=== PATIENT | male | born 1995 | race Caucasian/White ===

== ENCOUNTER 2018-02-15 17:08 | Emergency (ER) | payer OTHER ==
[~2018-02-15] VITALS: Ht 172.7 cm; Wt 68.0 kg
[2018-02-15 17:21] VITALS: BP 134/77
--- NOTE | 2018-02-15 18:22 | Emergency Room Report ---
History of Present Illness General Chief Complaint: Skin Rash/Abscess Source: Patient Present Illness HPI This patient c/o spider bite right ant thigh yesterday. Pain at site, there are spiders in the house. No other complaint. Allergies: Coded Allergies: SULFA (SULFONAMIDE ANTIBIOTICS) (Verified Allergy, Unknown, 02/15/18) Nursing Documentation-[facility] Past Medical History: No History, Except For Hx Hypertension: Yes Review of Systems Constitutional: Reports: no symptoms Eye: Reports: no symptoms ENT: Reports: no symptoms Respiratory: Reports: no symptoms Cardiovascular: Reports: no symptoms Gastrointestinal: Reports: no symptoms Genitourinary: Reports: no symptoms Musculoskeletal: Reports: see HPI Skin: Reports: no symptoms Psychiatric: Reports: no symptoms Neurological: Reports: no symptoms Endocrine: Reports: no symptoms Hematologic/Lymphatic: Reports: no symptoms Allergic: Reports: no symptoms All Other Systems: negative except mentioned in HPI Physical Exam Vital Signs Date Time Temp Pulse Resp B/P (MAP) Pulse Ox O2 Delivery O2 Flow Rate FiO2 02/15/18 17:15 98.2 82 18 134/77 95 Room Air Sp02 EP Interpretation: reviewed, normal General Appearance: normal inspection, well appearing, no apparent distress, alert, GCS 15, non-toxic Head: normocephalic, atraumatic Eyes: bilateral eye normal inspection, bilateral eye PERRL, bilateral eye EOMI ENT: normal ENT inspection, hearing grossly normal, normal pharynx, no angioedema, normal voice, moist mucus membranes Neck: normal inspection, full range of motion, supple, no meningismus, no bony tend Respiratory: normal inspection, lungs clear, normal breath sounds, no rhonchi, no respiratory distress, no retraction, no accessory muscle use, no wheezing Cardiovascular #1: normal inspection, regular rate, rhythm, no edema Gastrointestinal: normal inspection, normal bowel sounds, non tender, soft, no mass, non-distended Musculoskeletal: gait/station normal, normal range of motion, other - there is small area of ecchymosis ~one inch x half inch and two tiny punctures c/w spider fang Neurologic: normal inspection, alert, oriented x3, responsive, motor strength/ tone normal Psychiatric: normal inspection, judgement/insight normal, memory normal Suicide Risk Assessment: Suicidal Ideation: No Had intent to initiate attempt: No Pt's plan for suicide attempt: No Has means to complete attempt: No Skin: normal inspection, normal color, no rash, warm/dry Medical Decision Making Diagnostic Impression: Primary Impression: Spider bite ER Course No specific treatment indicated. Last Vital Signs Date Time Temp Pulse Resp B/P (MAP) Pulse Ox O2 Delivery O2 Flow Rate FiO2 02/15/18 17:21 98.2 82 18 134/77 95 Room Air Disposition: HOME, SELF-CARE Referrals: NOT CHOSEN IPA/MD,REFERRING (PCP) Patient Instructions: Spider Bite, [id number] Joe Jade M.D. Feb 15, 2018 18:22
[2018-02-15 19:34] VITALS: BP 147/88
[2018-02-15 19:35] VITALS: BP 147/88
== END 2018-02-15 19:35 | disposition home or self-care (01) ==
LOC: EMR 17:52
DX: S70.361A Insect bite (nonvenomous), right thigh, initial encounter (principal); W57.XXXA Bitten or stung by nonvenomous insect and other nonvenomous arthropods, initial encounter; Y92.9 Unspecified place or not applicable; I10 Essential (primary) hypertension; Z88.2 Allergy status to sulfonamides
CPT/HCPCS: 99282

== ENCOUNTER 2018-05-17 17:30 | Emergency (ER) | payer OTHER ==
[~2018-05-17] VITALS: Ht 172.7 cm; Wt 74.8 kg
[2018-05-17 17:30] VITALS: BP 124/74
--- NOTE | 2018-05-17 17:30 | NUR ---
ED Nurse Note: Pt walked in to ER as c/o N/V/D since this morning. Per pt, he vomited x3 and had diarrhea x2 since this morning. Verbalized abdominal discomfort 3. Pt AAO x4, skin intact, no vomitting or diarrhea at this moment since arrived at ER. Calm and cooperative.
[2018-05-17 18:41] LABS: ANION GAP 7 mmol/L (5-15); BLOOD UREA NITROGEN 15 mg/dL (7-18); CALCIUM 9.3 MG/DL (8.5-10.1); CARBON DIOXIDE 30 MMOL/L (21-32); CHLORIDE 103 MMOL/L (98-107); CREATININE 1.1 MG/DL (0.55-1.30); POTASSIUM 4.1 MMOL/L (3.5-5.1); SODIUM 140 MMOL/L (136-145)
[2018-05-17 18:43] LABS: BASOPHILS % (AUTO) 1.8 % (0.0-2.0); EOSINOPHILS % (AUTO) 2.3 % (0.0-3.0); HEMATOCRIT 44.8 % (42.0-52.0); HEMOGLOBIN 15.1 G/DL (14.2-18.0); LYMPHOCYTES % (AUTO) 31.5 % (20.0-45.0); MEAN CORPUSCULAR VOLUME 89 FL (80-99); MONOCYTES % (AUTO) 6.4 % (1.0-10.0); NEUTROPHILS % (AUTO) 58.1 % (45.0-75.0); PLATELET COUNT 270 K/UL (150-450); RED BLOOD COUNT 5.06 M/UL (4.70-6.10); RED CELL DISTRIBUTION WIDTH 11.5 % (11.6-14.8); WHITE BLOOD COUNT 6.7 K/UL (4.8-10.8)
[2018-05-17 18:46] LABS: ALANINE AMINOTRANSFERASE 37 U/L (12-78); ALBUMIN 4.6 G/DL (3.4-5.0); ALBUMIN/GLOBULIN RATIO 1.3 (1.0-2.7); ALKALINE PHOSPHATASE 82 U/L (46-116); ASPARTATE AMINO TRANSFERASE 28 U/L (15-37); BILIRUBIN,TOTAL 0.3 MG/DL (0.2-1.0)
--- NOTE | 2018-05-17 19:08 | NUR ---
HAND-OFF: Report given to Rachele. pt stable in bed. all meds given.
[2018-05-17 19:20] VITALS: BP 141/78
--- NOTE | 2018-05-17 19:20 | NUR ---
ED Nurse Note: RECIEVED REPORT TO RESUME CARE, PT IN BED AWAKE, ALERT AND ORIENTED X 4, IV SITE PATENT WITH FLUIDS INFUSING, SITE ITNACT, PT DENIES PAIN, NO CP, NO SOB OR LABORED BREATHING, SPOUSE PRESENT AT BEDSIDE, WILL RESUME CARE ORDERED, CONTINUE TO MONITOR FOR MED EFFECTIVENESS AND ANY ACUTE CHANGES, NAD NOTED AT THIS TIME.
[2018-05-17] MEDS ORDERED: PRILOSEC OTC20 MG ORAL (19:33)
--- NOTE | 2018-05-17 19:45 | NUR ---
ED Nurse Note: PT BEING D/C TO HOME AWAKE AND ALERT, AMBULATORY, NO CP OR ANY PAIN, NO NAUSEA OR VOMITING, PT WITH SPOUSE, GIVEN F/U INFO, AFTER CARE INSTRUCTIONS AND RE-VERBALIZES PROPER MEDICATION ADMINISTRATION, PT ARMBAND AND IV LINE REMOVED WITHOUT COMPLICATIONS, NAD NOTED DURING D/C TO HOME.
[2018-05-17 19:48] VITALS: BP 141/78
--- NOTE | 2018-05-18 14:11 | Emergency Room Report ---
History of Present Illness General Chief Complaint: Nausea, Vomiting, and Diarrhea Source: Patient Present Illness HPI Patient is a 22-year-old male who presented after increased vomiting. Patient reports having one episode of hematemesis. He reports taking multiple medications for psychiatric disease as well as antihypertensive. Patient states that he had not been drinking alcohol recently. He had been taking some nonsteroidal anti-inflammatory medications for low back pain which is chronic. He denies any fever. He denies any black or bloody stools. He reports having some generalized abdominal cramping. He denies any prior history of colitis. Patient reports currently being in a recovery program. Allergies: Coded Allergies: SULFA (SULFONAMIDE ANTIBIOTICS) (Verified Allergy, Unknown, 02/15/18) Patient History Past Medical History: see triage record Reviewed Nursing Documentation: PMH: Agreed; PSxH: Agreed Nursing Documentation-PMH Past Medical History: No History, Except For Hx Hypertension: Yes Review of Systems All Other Systems: negative except mentioned in HPI Physical Exam Vital Signs Date Time Temp Pulse Resp B/P (MAP) Pulse Ox O2 Delivery O2 Flow Rate FiO2 05/17/18 17:30 97.7 78 18 124/74 98 Room Air Sp02 EP Interpretation: reviewed, normal General Appearance: normal inspection, well appearing, no apparent distress, alert, GCS 15, non-toxic Head: atraumatic ENT: normal ENT inspection, hearing grossly normal, normal voice Neck: normal inspection, full range of motion, supple, no bony tend Respiratory: normal inspection, lungs clear, normal breath sounds, no respiratory distress, no retraction, no wheezing Cardiovascular #1: regular rate, rhythm, no edema Gastrointestinal: normal inspection, normal bowel sounds, non tender, soft, no guarding, no hernia Genitourinary: no CVA tenderness Musculoskeletal: normal inspection, back normal, normal range of motion Neurologic: normal inspection, alert, oriented x3, responsive, health educator III-XII nml as tested, speech normal Psychiatric: normal inspection, judgement/insight normal, mood/affect normal Skin: normal inspection, normal color, no rash Medical Decision Making Diagnostic Impression: Primary Impression: Gastritis ER Course Patient presented for abdominal pain. Differential diagnoses included ischemic bowel, appendicitis, perforated viscus, abdominal aortic aneurysm, inferior myocardial infarction, viral gastroenteritis. Because of complexity of patient' s case laboratory testing and imaging studies were ordered. Laboratory testing was notable for unremarkable blood counts. Patient given IV fluids as well as IV acid blockers. Patient said he felt better. Patient was offered admission for further evaluation monitoring of his blood counts. Shared decision making patient declined admission and stated he would seek outpatient evaluation. Patient appears to be stable for discharge at this time. Patient was advised to return if he began having any recurrence of bleeding bloody stools or other concerns Labs Test 05/17/18 18:14 05/17/18 18:30 White Blood Count 6.7 K/UL (4.8-10.8) Red Blood Count 5.06 M/UL (4.70-6.10) Hemoglobin 15.1 G/DL (14.2-18.0) Hematocrit 44.8 % (42.0-52.0) Mean Corpuscular Volume 89 FL (80-99) Mean Corpuscular Hemoglobin 29.8 PG (27.0-31.0) Mean Corpuscular Hemoglobin Concent 33.6 G/DL (32.0-36.0) Red Cell Distribution Width 11.5 % (11.6-14.8) Platelet Count 270 K/UL (150-450) Mean Platelet Volume 6.5 FL (6.5-10.1) Neutrophils (%) (Auto) 58.1 % (45.0-75.0) Lymphocytes (%) (Auto) 31.5 % (20.0-45.0) Monocytes (%) (Auto) 6.4 % (1.0-10.0) Eosinophils (%) (Auto) 2.3 % (0.0-3.0) Basophils (%) (Auto) 1.8 % (0.0-2.0) Sodium Level 140 MMOL/L (136-145) Potassium Level 4.1 MMOL/L (3.5-5.1) Chloride Level 103 MMOL/L (98-107) Carbon Dioxide Level 30 MMOL/L (21-32) Anion Gap 7 mmol/L (5-15) Blood Urea Nitrogen 15 mg/dL (7-18) Creatinine 1.1 MG/DL (0.55-1.30) Estimat Glomerular Filtration Rate > 60 mL/min (>60) Glucose Level 99 MG/DL (74-106) Calcium Level 9.3 MG/DL (8.5-10.1) Total Bilirubin 0.3 MG/DL (0.2-1.0) Aspartate Amino Transf (AST/SGOT) 28 U/L (15-37) Alanine Aminotransferase (ALT/SGPT) 37 U/L (12-78) Alkaline Phosphatase 82 U/L (46-116) Total Protein 8.1 G/DL (6.4-8.2) Albumin 4.6 G/DL (3.4-5.0) Globulin 3.5 g/dL Albumin/Globulin Ratio 1.3 (1.0-2.7) Prothrombin Time 10.5 SEC (9.30-11.50) Prothromb Time International Ratio 1.0 (0.9-1.1) Activated Partial Thromboplast Time 28 SEC (23-33) Last Vital Signs Date Time Temp Pulse Resp B/P (MAP) Pulse Ox O2 Delivery O2 Flow Rate FiO2 05/17/18 19:48 98.4 63 14 141/78 100 Room Air Status: improved Disposition: HOME, SELF-CARE Condition: Stable Scripts Omeprazole Magnesium (PRILOSEC OTC) 20 Mg Tablet. 20 MG ORAL DAILY, #30 TAB Prov: Ted Guardado MD 05/17/18 Patient Instructions: Gastritis, Adult Ted Guardado MD May 18, 2018 14:11
[2018-05-18] MEDS ORDERED: PROPRANOLO20 MG/5 M1 PO (14:50)
[2018-05-18] MEDS ORDERED: TYLENOL EXTRA500 MG ORAL (16:18)
== END 2018-05-17 19:45 | disposition home or self-care (01) ==
LOC: EMR 18:38
DX: K29.70 Gastritis, unspecified, without bleeding (principal); I10 Essential (primary) hypertension; Z88.2 Allergy status to sulfonamides
CPT/HCPCS: 36415; 80053; 85025; 85610; 85730; 86850; 86900; 86901; 96361; 96374; 99284; S0028

== ENCOUNTER 2018-05-18 14:44 | Emergency (ER) | payer OTHER ==
[~2018-05-18] VITALS: Ht 172.7 cm; Wt 74.8 kg
[~2018-05-18 14:44] MED LIST: PRILOSEC OTC20 MG ORAL
[2018-05-18] MEDS ORDERED: PROPRANOLO20 MG/5 M1 PO (14:50)
--- NOTE | 2018-05-18 14:54 | NUR ---
ED Nurse Note: Patient walked into ED c/o of left ankle pain, patient states that he "broke up a dog fight, fell and heard a pop on his left ankle". patient rates his pain a 8/10 pain. patient is alert and oriented x4, ambulatory with a limp.
--- NOTE | 2018-05-18 15:06 | Emergency Room Report ---
History of Present Illness General Chief Complaint: Lower Extremity Injury Present Illness HPI 22-year-old male patient presents the ER complaining of left ankle pain times 1 day. Reports that he was running to break up a dog fight at his house when he had an ankle inversion injury. Reports pain with walking. States not take any medication for relief of symptoms. Denies calf pain. Reports applied Vivek wrap to ankle. Denies other aggravating or relieving symptoms. Denies hitting her head or loss of consciousness. Patient reports was seen in the ER yesterday for gastritis, reports symptoms improved, denies hematemesis since that time. Allergies: Coded Allergies: SULFA (SULFONAMIDE ANTIBIOTICS) (Verified Allergy, Unknown, 02/15/18) Patient History Past Medical History: see triage record Reviewed Nursing Documentation: PMH: Agreed; PSxH: Agreed Nursing Documentation-PMH Hx Hypertension: Yes Review of Systems All Other Systems: negative except mentioned in HPI Physical Exam Vital Signs Date Time Temp Pulse Resp B/P (MAP) Pulse Ox O2 Delivery O2 Flow Rate FiO2 05/18/18 14:48 98.4 63 19 122/74 97 Room Air Sp02 EP Interpretation: reviewed, normal General Appearance: well appearing, no apparent distress, alert, GCS 15, non- toxic Head: normocephalic, atraumatic Eyes: bilateral eye normal inspection, bilateral eye PERRL ENT: hearing grossly normal, normal pharynx, no angioedema, normal voice, uvula midline, moist mucus membranes Neck: full range of motion Respiratory: lungs clear, normal breath sounds, no rhonchi, no respiratory distress, no accessory muscle use, no wheezing, speaking full sentences Cardiovascular #1: regular rate, rhythm, no edema Cardiovascular #2: 2+ dorsalis pedis (R), 2+ dorsalis pedis (L) Musculoskeletal: back normal, digits/nails normal, gait/station normal, normal range of motion, no calf tenderness, Jax's Sign negative, other - Negative ankle drawer, cap refill less than 2 seconds, sensation intact light touch, negative syndesmotic squeeze test, no tenderness to palpation at the base of the left fifth metatarsal, tender - Anterior dorsum of left ankle, left lateral malleoli Skin: no rash Medical Decision Making PA Attestation Dr. Guardado is my supervising Physician whom patient management has been discussed with. Diagnostic Impression: Primary Impression: Ankle sprain ER Course Pt. presents to the ED c/o left ankle pain. Ddx considered but are not limited to fracture, sprain, strain, contusion, dislocation. No erythema, no warmth to touch, no fever, nontoxic appearing, low suspicion for septic joint. Soft compartments, no pulselessness, no pallor, no paresthesias, low suspicion for compartment syndrome at this time. Vital signs: are WNL, pt. is afebrile Ordered X-ray and pain medication. ER COURSE Provided with pain medication. An X-ray of the left ankle shows no acute fracture per the preliminary reading Splint was applied to the left ankle and was checked afterwards by me showing good alignment and support with distal neurovascular functioning intact. Crutches provided. Patient instructed on RICE method: rest, ice, compression, elevation. Patient instructed on rest, ice and heat. Patient instructed to be WBAT Contact information for orthopedic urgent care provided, follow-up with urgent care if unable to followup with primary care provider and get referral to language specialist. Followup with primary care provider. Discuss referral to ortho/pain management/ PT as needed. Discuss further imaging with MRI/CT as needed. DISCHARGE: -Rx provided for Tylenol for pain symptoms. At this time pt. is stable for d/c to home. Patient is resting comfortably, in no acute distress, nontoxic appearing, talking without difficulty. Will provide printed patient care instructions, and any necessary prescriptions. Patient instructed to follow with primary care provider in 3 - 5 days and to request further follow-up as needed. Care plan and follow up instructions have been discussed with the patient prior to discharge. Take medications as directed. Patient questions asked and answered. Patient reports understanding and agreement to treatment plan. ER precautions given, patient instructed to return to ER immediately for any new or worsening of symptoms. - Please note that this Emergency Department Report was dictated using [employer] photography and prints technology software, occasionally this can lead to erroneous entry secondary to interpretation by the dictation equipment. Other X-Ray Diagnostic Results Other X-Ray Diagnostic Results : X-Ray ordered: Left ankle # of Views/Limited Vs Complete: 3 View Indication: Pain EP Interpretation: Yes PA Xray: Interpretation reviewed, by supervising MD, and agrees with findings. Interpretation: no dislocation, no soft tissue swelling, no fractures Impression: No acute disease CARTER Scribe Text Trent Morgan PA-C Last Vital Signs Date Time Temp Pulse Resp B/P (MAP) Pulse Ox O2 Delivery O2 Flow Rate FiO2 05/18/18 14:48 98.4 63 19 122/74 97 Room Air Status: improved Disposition: HOME, SELF-CARE Condition: Stable Scripts Acetaminophen* (TYLENOL EXTRA STRENGTH*) 500 Mg Tablet 500 MG ORAL Q8H PRN for Prn Headache/Temp > 101, #30 TAB 0 Refills Prov: Osmar Morgan 05/18/18 Patient Instructions: Ankle Sprain Additional Instructions: Patient instructed to follow up with primary care provider and discuss further referral to orthopedics/physical therapy/pain management as needed. If unable to followup with PCP, followup with orthopedic urgent care in 5-7 days , call to schedule appointment. Patient instructed on RICE method: rest, ice, compression, elevation. Patient instructed to WBAT. Take medications as directed. Take medication with food. Patient questions asked and answered. ER precautions given, patient instructed to return to ER immediately for any new or worsening of symptoms. [facility] [address] [facility], [id number] [email or web address] Osmar Morgan May 18, 2018 15:06
[2018-05-18] MEDS ORDERED: TYLENOL EXTRA500 MG ORAL (16:18)
[2018-05-18 16:20] VITALS: BP 125/79
--- NOTE | 2018-05-18 16:21 | NUR ---
ED Nurse Note: Patient is being discharged from ED after being medically cleared by ERMD, patient acknowledged the need to follow up with PMD within a week if symptoms dont improve, patient's prescriptions in hand and is leaving ambulatory with a steady gait, VSS, no distress noted, Id band removed
--- NOTE | 2018-05-18 17:02 | Diagnostic Imaging Report ---
Indication: Left ankle pain Technique: 3 views of the left ankle Comparison: none Findings: The calcaneal tuberosity is cut off of the exam. Patient had left the ED before the exam could be repeated. No acute fractures. No dislocations. The joint spaces are preserved Impression: Somewhat limited exam; negative
== END 2018-05-18 16:21 | disposition home or self-care (01) ==
LOC: EMR 15:20
DX: S93.402A Sprain of unspecified ligament of left ankle, initial encounter (principal); W19.XXXA Unspecified fall, initial encounter; Y93.02 Activity, running; Y92.009 Unspecified place in unspecified non-institutional (private) residence as the place of occurrence of the external cause; I10 Essential (primary) hypertension; Z88.2 Allergy status to sulfonamides
CPT/HCPCS: 29515; 99283

== ENCOUNTER 2018-05-31 02:33 | Emergency (ER) | payer OTHER ==
[~2018-05-31] VITALS: Ht 170.2 cm; Wt 74.8 kg
[~2018-05-31 02:33] MED LIST changes: +PROPRANOLO20 MG/5 M1 PO; +TYLENOL EXTRA500 MG ORAL
[2018-05-31 02:37] VITALS: BP 128/66
[2018-05-31] MEDS ORDERED: LAMOTRIGINE25 M1 PO (02:37)
[2018-05-31] MEDS ORDERED: PAXIL30 MG ORAL (02:37)
[2018-05-31] MEDS ORDERED: NEURONTIN300 MG ORAL (02:37)
--- NOTE | 2018-05-31 02:40 | NUR ---
ED Nurse Note: Patient RADHA RA 60 from home c/o heroin OD. Patient's friends gave him narcan nasal spray prior to EMS arrival. pt stated he wanted to use heroin for recreational use. when asked if pt wanted to harm himself, pt denied harm to self, harm to others. pt vital signs, condition, and status are within normal limits in tri. pt is able to determin when he is at the moment, why he is here, and recall memeries like time and date. pt pupils are round and reactive to light.
--- NOTE | 2018-05-31 02:58 | Emergency Room Report ---
History of Present Illness General Chief Complaint: Substance Abuse Source: Patient Present Illness HPI Is a 22-year-old male with a history of IV heroin abuse. He has been 9 months clean. He is currently living in a sober living. He injected himself with heroin tonight. He was found unresponsive and was given intranasal Narcan 2 mg. This woke him up. He did not know what happened. He denies any suicidal thoughts or homicidal thought. Denies any other complaint. Allergies: Coded Allergies: SULFA (SULFONAMIDE ANTIBIOTICS) (Verified Allergy, Unknown, 02/15/18) Patient History Past Medical History: see triage record, old chart reviewed Past Surgical History: none Pertinent Family History: none Social History: Reports: drug use Immunizations: other Reviewed Nursing Documentation: PMH: Agreed; PSxH: Agreed Nursing Documentation-PMH Past Medical History: No History, Except For Hx Hypertension: Yes Review of Systems Eye: Denies: eye pain, blurred vision ENT: Denies: ear pain, nose congestion, throat swelling Respiratory: Denies: cough, shortness of breath Cardiovascular: Denies: chest pain, palpitations Gastrointestinal: Denies: abdominal pain, diarrhea, nausea, vomiting Musculoskeletal: Denies: back pain, joint pain Skin: Denies: rash Neurological: Denies: headache, numbness Endocrine: Denies: increased thirst, increased urine Hematologic/Lymphatic: Denies: easy bruising All Other Systems: negative except mentioned in HPI Physical Exam Vital Signs Date Time Temp Pulse Resp B/P (MAP) Pulse Ox O2 Delivery O2 Flow Rate FiO2 05/31/18 02:34 98.4 96 16 128/66 97 05/31/18 02:37 Room Air 99 vitals normal Sp02 EP Interpretation: reviewed, normal General Appearance: well appearing, no apparent distress, other - Sleepy Head: normocephalic, atraumatic Eyes: bilateral eye PERRL, bilateral eye EOMI ENT: hearing grossly normal, normal pharynx Neck: full range of motion, supple, no meningismus Respiratory: chest non-tender, lungs clear, normal breath sounds Cardiovascular #1: regular rate, rhythm, no murmur Gastrointestinal: normal bowel sounds, non tender, no mass, no organomegaly, no bruit, non-distended Musculoskeletal: back normal, gait/station normal, normal range of motion Psychiatric: mood/affect normal Skin: warm/dry Medical Decision Making Diagnostic Impression: Primary Impression: Accidental heroin overdose Qualified Codes: T40.1X1A - Poisoning by heroin, accidental (unintentional), initial encounter ER Course Patient presents with heroin overdose. He slept for a few hours and is awake now. No suicidal attempt. No criteria for 5150. Last Vital Signs Date Time Temp Pulse Resp B/P (MAP) Pulse Ox O2 Delivery O2 Flow Rate FiO2 05/31/18 02:37 98.4 82 16 128/66 97 Room Air 05/31/18 02:37 99 Status: improved Disposition: HOME, SELF-CARE Condition: Stable Additional Instructions: Abstain from drugs and alcohol. Continue with rehabilitation. Follow-up with your doctor in 7 days as needed. Return if worse. Alex Vee MD May 31, 2018 02:58
[2018-05-31] MEDS ORDERED: Naloxone 1mg/ml 2ml IVP ONE (03:00)
[2018-05-31 04:35] VITALS: BP 121/67
[2018-05-31 05:50] VITALS: BP 124/69
--- NOTE | 2018-05-31 05:50 | NUR ---
ED Nurse Note: PT is DC per ERMD order. pt is alert and oriented times 4 with neuro checks within normal limits. pt is able to ambulate with no complications. pt vital signs, status, and condition is reported to ERMD prior to DC. pt is instructed to follow up with primary MD as soon as possible. pt has left with all belongings and ID band removed. pt has left with all DC paper paperwork and prescriptions and shows full understanding of paperwork and DC instructions. pt is instructed to return and report to ER if any variance in condition. pt is stable for Dc.
== END 2018-05-31 05:50 | disposition home or self-care (01) ==
LOC: EDBD 02:33 → EDUNIT# 02:33 → EMR 02:49
DX: T40.1X1A Poisoning by heroin, accidental (unintentional), initial encounter (principal); Y92.9 Unspecified place or not applicable; I10 Essential (primary) hypertension; Z88.2 Allergy status to sulfonamides
CPT/HCPCS: 96361; 96374; 99284; J2310

== ENCOUNTER 2018-06-26 14:15 | Emergency (ER) | payer OTHER ==
[~2018-06-26] VITALS: Ht 170.2 cm; Wt 74.8 kg
[~2018-06-26 14:15] MED LIST changes: +LAMOTRIGINE25 M1 PO; +NEURONTIN300 MG ORAL; +PAXIL30 MG ORAL
--- NOTE | 2018-06-26 14:40 | NUR ---
ED Nurse Note: Pt came into the ER w/ complaints of n,v,d x 1 week. Pt is complaining of abdominal pain 6/10. Non radiating. A + O x4. Ambulatory. Skin warm to touch.
[2018-06-26 14:41] VITALS: BP 144/60
[2018-06-26] MEDS ORDERED: DiphenhydrAMINE 50mg/ml Inj IVP ONE (14:45)
[2018-06-26] MEDS ORDERED: Mylanta II UD 30ml ORAL ONE (14:45)
[2018-06-26] MEDS ORDERED: Lidocaine 2% Visc 15ml soln ORAL ONE (14:45)
[2018-06-26] MEDS ORDERED: Metoclopramide 10mg/2ml Inj IVP ONE (14:45)
--- NOTE | 2018-06-26 14:55 | NUR ---
ED Nurse Note: Xray at the bedside
--- NOTE | 2018-06-26 14:56 | Emergency Room Report ---
History of Present Illness General Chief Complaint: Nausea, Vomiting, and Diarrhea Source: Patient Present Illness HPI The patient presents with one week of epigastric pain, nausea and vomiting. He has a history of acid reflux and gastritis. Taking Famotadine without help ( later states he is not taking daily). Denies vomiting blood or melena. He denies fevers and chills. He states the pain is 6/10 at this time and burning and constant and aching not radiating. It's epigastric. No dysuria. The patient also is complaining about left knee pain. He states it's twisted his ankle a while back (1 month) but the knee is bothering him now. He feels like there is something behind the knee that is giving him pain. X-rays of the ankle were negative. The patient states he cannot take narcotics because he has a prior history of opiate dependence and abuse. No skin rashes or depression. 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 Reviewed Nursing Documentation: PMH: Agreed; PSxH: Agreed Nursing Documentation-PMH Past Medical History: No History, Except For Hx Hypertension: Yes Review of Systems All Other Systems: negative except mentioned in HPI Physical Exam Vital Signs Date Time Temp Pulse Resp B/P (MAP) Pulse Ox O2 Delivery O2 Flow Rate FiO2 06/26/18 14:20 98.1 73 16 122/92 96 Room Air Sp02 EP Interpretation: reviewed, normal General Appearance: well appearing, no apparent distress, GCS 15 Head: normocephalic Eyes: bilateral eye normal inspection, bilateral eye PERRL, bilateral eye EOMI ENT: moist mucus membranes Neck: supple Respiratory: lungs clear, normal breath sounds Cardiovascular #1: regular rate, rhythm Cardiovascular #2: 2+ radial (R) Gastrointestinal: normal inspection, normal bowel sounds, no mass, non- distended, no guarding, no rebound, tenderness - Epigastric Musculoskeletal: back normal, other - Lateral ligament laxity. Negative drawer and negative Apley's compression. Neurologic: alert, oriented x3, motor strength/tone normal, DTRs symmetric, sensory intact Psychiatric: mood/affect normal Skin: normal inspection, warm/dry, other - Tattoos Medical Decision Making Diagnostic Impression: Primary Impression: Gastritis Qualified Codes: K29.00 - Acute gastritis without bleeding Additional Impression: Left knee pain Qualified Codes: M25.562 - Pain in left knee ER Course Patient presents with 2 problems. Epigastric pain which she says is like his gastritis and reflux. We have to exclude pancreatitis. Labs are indicated. Vivek on exam no x-rays are indicated of his abdomen. Also is complaining about left knee pain. X-rays are indicated here. This is consistent with either a ligamentous strain or a Shea's cyst. The patient will be treated with IV hydration, Reglan, Benadryl, Pepcid, Mylanta, viscous lidocaine and Tylenol. No x-ray studies are indicated at this time. Labs with normal CBC, CMP, lipase and urinalysis. Patient improved and tolerating oral intake. An Vivek wrap is applied to the left knee by me. Tension and position excellent with improvement. Distal neurovascular exam is normal as checked by me afterwards. The pain is felt to be mechanical secondary to the ankle injury. I cannot exclude bakers cyst. Discussed treatment plan with patient and girlfriend. Discussed the importance of follow-up and endoscopy to exclude He. Pylori. Laboratory Tests Test 06/26/18 14:40 White Blood Count 7.2 K/UL (4.8-10.8) Red Blood Count 4.72 M/UL (4.70-6.10) Hemoglobin 14.0 G/DL (14.2-18.0) L Hematocrit 42.0 % (42.0-52.0) Mean Corpuscular Volume 89 FL (80-99) Mean Corpuscular Hemoglobin 29.7 PG (27.0-31.0) Mean Corpuscular Hemoglobin Concent 33.3 G/DL (32.0-36.0) Red Cell Distribution Width 11.3 % (11.6-14.8) L Platelet Count 278 K/UL (150-450) Mean Platelet Volume 6.1 FL (6.5-10.1) L Neutrophils (%) (Auto) 55.7 % (45.0-75.0) Lymphocytes (%) (Auto) 33.3 % (20.0-45.0) Monocytes (%) (Auto) 6.7 % (1.0-10.0) Eosinophils (%) (Auto) 2.8 % (0.0-3.0) Basophils (%) (Auto) 1.5 % (0.0-2.0) Urine Color Pale yellow Urine Appearance Cloudy Urine pH 7 (4.5-8.0) Urine Specific [place] 1.010 (1.005-1.035) Urine Protein Negative (NEGATIVE) Urine Glucose (UA) Negative (NEGATIVE) Urine Ketones Negative (NEGATIVE) Urine Blood Negative (NEGATIVE) Urine Nitrite Negative (NEGATIVE) Urine Bilirubin Negative (NEGATIVE) Urine Urobilinogen Normal MG/DL (0.0-1.0) Urine Leukocyte Esterase Negative (NEGATIVE) Sodium Level 139 MMOL/L (136-145) Potassium Level 3.8 MMOL/L (3.5-5.1) Chloride Level 101 MMOL/L (98-107) Carbon Dioxide Level 32 MMOL/L (21-32) Anion Gap 7 mmol/L (5-15) Blood Urea Nitrogen 17 mg/dL (7-18) Creatinine 1.2 MG/DL (0.55-1.30) Estimate Glomerular Filtration Rate > 60 mL/min (>60) Glucose Level 104 MG/DL (74-106) Calcium Level 9.2 MG/DL (8.5-10.1) Total Bilirubin 0.2 MG/DL (0.2-1.0) Aspartate Amino Transferase (AST) 23 U/L (15-37) Alanine Aminotransferase (ALT) 27 U/L (12-78) Alkaline Phosphatase 73 U/L (46-116) Total Creatine Kinase 225 U/L (26-308) Total Protein 7.5 G/DL (6.4-8.2) Albumin 4.3 G/DL (3.4-5.0) Globulin 3.2 g/dL Albumin/Globulin Ratio 1.3 (1.0-2.7) Lipase 142 U/L (73-393) Other X-Ray Diagnostic Results Other X-Ray Diagnostic Results : X-Ray ordered: Left knee # of Views/Limited Vs Complete: 3 View Indication: Pain Interpretation: no dislocation, no soft tissue swelling, no fractures Impression: No acute disease Electronically Signed by: Electronically signed by Mickey Mansfield MD Last Vital Signs Date Time Temp Pulse Resp B/P (MAP) Pulse Ox O2 Delivery O2 Flow Rate FiO2 06/26/18 17:20 98.2 71 10 125/56 100 Room Air Status: improved Disposition: HOME, SELF-CARE Condition: Improved Scripts Mag Hydrox/Al Hydrox/Simeth (MAALOX MAXIMUM STRENGTH SUSP) 355 Ml Oral.susp 30 ML PO Q6HR, #244 ML Prov: Mickey Mansfield MD 06/26/18 Acetaminophen (Tylenol) 325 Mg Tablet 650 MG ORAL Q6H PRN for Prn Pain/Headache/Temp > 101, #20 TAB 0 Refills Prov: Mickey Mansfield MD 06/26/18 Famotidine (PEPCID AC) 20 Mg Tablet 20 MG PO DAILY, #30 TAB Prov: Mickey Mansfield MD 06/26/18 Mickey Mansfield MD Jun 26, 2018 14:56
[2018-06-26 15:00] LABS: BASOPHILS % (AUTO) 1.5 % (0.0-2.0); EOSINOPHILS % (AUTO) 2.8 % (0.0-3.0); LYMPHOCYTES % (AUTO) 33.3 % (20.0-45.0); MEAN CORPUSCULAR VOLUME 89 FL (80-99); MONOCYTES % (AUTO) 6.7 % (1.0-10.0); NEUTROPHILS % (AUTO) 55.7 % (45.0-75.0); PLATELET COUNT 278 K/UL (150-450); RED BLOOD COUNT 4.72 M/UL (4.70-6.10); RED CELL DISTRIBUTION WIDTH 11.3 % (11.6-14.8); WHITE BLOOD COUNT 7.2 K/UL (4.8-10.8)
[2018-06-26 15:01] LABS: APPEARANCE,URINE CLOUDY; BILIRUBIN, URINE NEGATIVE (NEGATIVE); COLOR,URINE PALE YELLOW; GLUCOSE, URINE (UA) NEGATIVE (NEGATIVE); KETONES,URINE NEGATIVE (NEGATIVE); LEUKOCYTE ESTERASE ,URINE NEGATIVE (NEGATIVE); NITRITE,URINE NEGATIVE (NEGATIVE); PH,URINE 7 (4.5-8.0); PROTEIN,URINE NEGATIVE (NEGATIVE); UROBILINOGEN,URINE NORMAL MG/DL (0.0-1.0)
[2018-06-26 15:09] LABS: ANION GAP 7 mmol/L (5-15); BLOOD UREA NITROGEN 17 mg/dL (7-18); CALCIUM 9.2 MG/DL (8.5-10.1); CARBON DIOXIDE 32 MMOL/L (21-32); CHLORIDE 101 MMOL/L (98-107); CREATININE 1.2 MG/DL (0.55-1.30); POTASSIUM 3.8 MMOL/L (3.5-5.1); SODIUM 139 MMOL/L (136-145)
[2018-06-26 15:15] LABS: ALANINE AMINOTRANSFERASE 27 U/L (12-78); ALBUMIN 4.3 G/DL (3.4-5.0); ALBUMIN/GLOBULIN RATIO 1.3 (1.0-2.7); ALKALINE PHOSPHATASE 73 U/L (46-116); ASPARTATE AMINO TRANSFERASE 23 U/L (15-37); BILIRUBIN,TOTAL 0.2 MG/DL (0.2-1.0); CREATINE KINASE 225 U/L (26-308)
--- NOTE | 2018-06-26 15:48 | Diagnostic Imaging Report ---
Indications: Knee pain Technique: Three views of the left knee Comparison: None Findings: No acute fractures. No dislocations. Joint spaces are preserved. No radiopaque foreign body. Normal mineralization. Impression: No acute process
[2018-06-26 16:50] VITALS: BP 125/56
[2018-06-26] MEDS ORDERED: MAALOX MAXIMUM355 M1 PO (17:12)
[2018-06-26] MEDS ORDERED: PEPCID AC20 M2 PO (17:12)
[2018-06-26] MEDS ORDERED: TYLENOL325 MG ORAL (17:12)
[2018-06-26 17:20] VITALS: BP 125/56
--- NOTE | 2018-06-26 17:22 | NUR ---
ER DISCHARGE NOTE: Patient is cleared to be discharged per ERMD, pt is aox4, on room air, with stable vital signs. pt was given dc and prescription instructions, pt was able to verbalize understanding, pt id band and iv site removed without complications. pt is able to ambulate with steady gait. pt took all belongings.
== END 2018-06-26 17:27 | disposition home or self-care (01) ==
LOC: EMR 14:55
DX: K29.70 Gastritis, unspecified, without bleeding (principal); M25.562 Pain in left knee; I10 Essential (primary) hypertension
CPT/HCPCS: 36415; 73562; 80053; 81003; 82550; 83690; 85025; 96361; 96374; 96375; 99284; J1200; J2765; S0028

== ENCOUNTER 2019-07-31 13:26 | Emergency (ER) | payer OTHER ==
[~2019-07-31] VITALS: Ht 172.7 cm; Wt 74.8 kg
[~2019-07-31 13:26] MED LIST changes: +MAALOX MAXIMUM355 M1 PO; +PEPCID AC20 M2 PO; +TYLENOL325 MG ORAL
[2019-07-31] MEDS ORDERED: QUETIAPINE FUM200 MG ORAL (14:13)
[2019-07-31] MEDS ORDERED: CLONIDINE1 EAC1 TD (14:13)
[2019-07-31] MEDS ORDERED: ROBAXIN-500MG ORAL (14:13)
--- NOTE | 2019-07-31 14:16 | NUR ---
ED Nurse Note: Pt ambulated to ED accompanied by caregiver; pt from [facility] (rehab for drug and alcohol) fro medical clearance. Pt's VS stable, on RA, afebrile on triage. Pt denies any cough nor sob. Placed on bed.
[2019-07-31 14:18] VITALS: BP 124/79
--- NOTE | 2019-07-31 14:33 | Emergency Room Report ---
History of Present Illness General Chief Complaint: Medical Clearance Source: Patient Present Illness HPI 23-year-old male presents to the emergency department brought by legal guardian for taking more gabapentin than prescribed approximately 2 hours prior to arrival. Patient is currently going through a detox program for drugs and alcohol and he was experiencing opiate withdraws so he took approximately 16 of the 600 mg gabapentin in an attempt to subside his withdrawal symptoms. Patient denies SI or HI. He denies previous psychiatric hospitalizations. Patient reports that he intentionally was abusing the medication for its abusable potential. Pt. Reports he was abruptly decreased on his Suboxone which precipitated his W/D symptoms. Pt denies pain, SOB, CP, sleepiness or fatigue. Pt. denies any symptoms at this time. PT. requesting to be d/c back to detox facility to continue with treatment. He denies significant PMHx. Allergies: Coded Allergies: SULFA (SULFONAMIDE ANTIBIOTICS) (Verified Allergy, Unknown, 06/26/18) COVID-19 Screening Contact w/high risk pt: No Recent Travel to affected area: No Experienced COVID-19 symptoms?: No Patient History Past Medical History: see triage record Past Surgical History: none Pertinent Family History: none Reviewed Nursing Documentation: PMH: Agreed; PSxH: Agreed Nursing Documentation-PMH Past Medical History: No History, Except For Hx Hypertension: Yes Review of Systems All Other Systems: negative except mentioned in HPI Physical Exam Vital Signs Date Time Temp Pulse Resp B/P (MAP) Pulse Ox O2 Delivery O2 Flow Rate FiO2 07/31/19 14:08 97.9 76 18 124/79 (94) 98 Room Air Sp02 EP Interpretation: reviewed, normal General Appearance: no apparent distress, alert, GCS 15, non-toxic Head: normocephalic, atraumatic Eyes: bilateral eye normal inspection, bilateral eye PERRL ENT: hearing grossly normal, normal voice Neck: full range of motion Respiratory: chest non-tender, lungs clear, normal breath sounds, no respiratory distress, no accessory muscle use, no wheezing, speaking full sentences Cardiovascular #1: regular rate, rhythm, no edema, no murmur, normal capillary refill Gastrointestinal: non tender, soft Musculoskeletal: normal range of motion, gait/station normal, non-tender Neurologic: alert, motor strength/tone normal, oriented x3, sensory intact, responsive, speech normal, grossly normal, normal inspection Psychiatric: judgement/insight normal Skin: normal color, normal inspection Medical Decision Making PA Attestation Dr. Acosta is my supervising Physician whom patient management has been discussed with. Diagnostic Impression: Primary Impression: Encounter for medical screening examination Additional Impressions: Medication taken at higher dose than recommended Misuse of medication ER Course 23-year-old male presents to the emergency department brought by legal guardian for taking more gabapentin than prescribed approximately 2 hours prior to arrival. Patient is currently going through a detox program for drugs and alcohol and he was experiencing opiate withdraws so he took approximately 16 of the 600 mg gabapentin in an attempt to subside his withdrawal symptoms. Patient denies SI or HI. He denies previous psychiatric hospitalizations. Patient reports that he intentionally was abusing the medication for its abusable potential. Pt. Reports he was abruptly decreased on his Suboxone which precipitated his W/D symptoms. Pt denies pain, SOB, CP, sleepiness or fatigue. Pt. denies any symptoms at this time. PT. requesting to be d/c back to detox facility to continue with treatment. He denies significant PMHx. Pt is hyperactive, and has a very anxious and restless affect. Ddx considered but are not limited to OD, SI/HI, psychosis, AMS, intoxication Vital signs: are WNL, pt. is afebrile H&PE are most consistent with Misuse of abusable medication. Opiate w/d syndrome. ORDERS: - None required at this time. Pt. alert and oriented, NAD, and non-toxic in appearance. Pt. consumed less than the Toxic dose of 49grams. Pt. consumed 10 grams total 2 hours ago. ED INTERVENTIONS: - Observance. Pt. continues to stay A & O x 4. DISPOSITION: Pt. safe to d/c back to outpatient medical detox facility by [facility]. pt. will be given discharge instructions for continued observation and to hold opiates and sedative medications for the rest of the day. Last Vital Signs Date Time Temp Pulse Resp B/P (MAP) Pulse Ox O2 Delivery O2 Flow Rate FiO2 07/31/19 14:18 97.9 18 124/79 98 Room Air 07/31/19 14:18 76 Disposition: HOME, SELF-CARE Condition: Stable Patient Instructions: Medical Screening Exam Additional Instructions: Take previously prescribed medications as directed. Hold Opiate medications for 8 Hours Do not mix with alcohol or other sedatives for 8 hours. Follow up with a Primary Care Provider in 3-5 days, even if your symptoms have resolved. --Please review list of primary care clinics, if you do not already have a primary care provider Return sooner to ED if new symptoms occur, or current symptoms become worse. - Please note that this Emergency Department Report was dictated using [employer] setter technology software, occasionally this can lead to erroneous entry secondary to interpretation by the dictation equipment. Johanny Todd Jul 31, 2019 14:33
[2019-07-31 14:38] VITALS: BP 124/79
--- NOTE | 2019-07-31 14:38 | NUR ---
ER DISCHARGE NOTE: Patient is cleared to be discharged per ERPA, pt is aox3, on room air, with stable vital signs. pt's legal guardian was given dc and prescription instructions, legal guardian was able to verbalize understanding, pt id band removed. pt is able to ambulate with steady gait. pt left ed accompanied by legal guardian.
== END 2019-07-31 14:38 | disposition home or self-care (01) ==
LOC: EMR 14:19
DX: T42.6X2A Poisoning by other antiepileptic and sedative-hypnotic drugs, intentional self-harm, initial encounter (principal); I10 Essential (primary) hypertension; Z88.2 Allergy status to sulfonamides; X58.XXXA Exposure to other specified factors, initial encounter; Y92.9 Unspecified place or not applicable
CPT/HCPCS: 99282